=== PATIENT | female | born 1990 | race Caucasian/White ===

== ENCOUNTER 2019-01-08 09:54 | Emergency (ER) | payer BC ==
[2019-01-08 10:02] VITALS: TEMP 97.9
[2019-01-08] MEDS ORDERED: SODIUM CHLORIDE 0.9% 1,000 ML IV STA (10:38)
--- NOTE | 2019-01-08 10:53 | ED ---
Arrhythmia/Palpitations HPI - General Chief Complaint: Arrhythmia/Palpitations Stated Complaint: racing heart/near syncope Time Seen by Provider: 01/08/19 10:23 Source: patient, RN notes reviewed Mode of arrival: ambulatory Limitations: no limitations - History of Present Illness Initial Comments: 28-year-old female presents emergency Department chief complaint of palpitations, heart racing, near syncope. Patient states she did have syncopal episode on Sunday while she was camping. Patient reports that she felt very flushed feeling, diaphoretic, states that she started having some tunnel vision. Patient did have a complete loss conscious at this time. She states that she's been having symptoms last 5 weeks has been being seen by her primary care physician in which she's had no echocardiogram which is unremarkable, Holter monitor with no acute findings or no reports at this time. Patient states that she is 26 weeks A0 with no complications of her . Patient has no complaint of chest pain or shortness of breath. Denies any leg pain or leg swelling. Patient states she is asymptomatic at this time. She did have an event today when she was at the store she again felt flushed feeling, diaphoretic, dizzy and she had some heart racing. This didn't have resolved. - Related Data Home Medications Medication Instructions Recorded Confirmed Scn-Aidk-Rioak Acid 1 cap PO HS 01/08/19 01/08/19 [-U Capsule (formulary)] Allergies Allergy/AdvReac Type Severity Reaction Status Date / Time No Known Allergies Allergy Verified 01/08/19 09:58 Review of Systems ROS Statement: Those systems with pertinent positive or pertinent negative responses have been documented in the HPI. ROS Other: All systems not noted in ROS Statement are negative. Past Medical History Past Medical History: No Reported History History of Any Multi-Drug Resistant Organisms: None Reported Past Surgical History: Section, Tonsillectomy Past Psychological History: No Psychological Hx Reported Smoking Status: Never smoker Past Alcohol Use History: None Reported Past Drug Use History: None Reported General Exam Limitations: no limitations General appearance: alert, in no apparent distress Head exam: Present: atraumatic, normocephalic, normal inspection Eye exam: Present: normal appearance, PERRL, EOMI. Absent: scleral icterus, conjunctival injection, periorbital swelling ENT exam: Present: normal exam, normal oropharynx, mucous membranes moist Neck exam: Present: normal inspection, full ROM. Absent: tenderness, meningismus, lymphadenopathy Respiratory exam: Present: normal lung sounds bilaterally. Absent: respiratory distress, wheezes, rales, rhonchi, stridor Cardiovascular Exam: Present: regular rate, normal rhythm, normal heart sounds. Absent: systolic murmur, diastolic murmur, rubs, gallop, clicks GI/Abdominal exam: Present: soft, normal bowel sounds. Absent: distended, tenderness, guarding, rebound, rigid Back exam: Absent: CVA tenderness (R), CVA tenderness (L) Neurological exam: Present: alert, oriented X3, CN II-XII intact Skin exam: Present: warm, dry, intact, normal color. Absent: rash Course Vital Signs 01/08/19 01/08/19 01/08/19 09:58 11:04 11:29 Temperature 97.9 F Pulse Rate 100 84 86 Respiratory 18 16 18 Rate Blood Pressure 118/75 102/67 119/72 O2 Sat by Pulse 100 97 98 Oximetry Medical Decision Making - Medical Decision Making Patient workup including labs, EKG and urinalysis which reveals mild hypomagnesemia, hypokalemia. Patient had recent workup including Holter monitor and echocardiogram with no significant findings. Patient was a symptomatic in emergency department. Patient is stable for discharge. Patient is advised follow-up with cardiology she was offered placement of left-sided to the emergency department states that she has oral medications at home. - Lab Data Result diagrams: 01/08/19 10:52 01/08/19 10:52 Lab Results 01/08/19 01/08/19 01/08/19 Range/Units 10:52 10:52 11:35 WBC 7.3 (3.8-10.6) k/uL RBC 3.77 L (3.80-5.40) m/uL Hgb 10.7 L (11.4-16.0) gm/dL Hct 33.1 L (34.0-46.0) % MCV 87.8 (80.0-100.0) fL MCH 28.4 (25.0-35.0) pg MCHC 32.3 (31.0-37.0) g/dL RDW 13.3 (11.5-15.5) % Plt Count 223 (150-450) k/uL Neutrophils % 74 % Lymphocytes % 19 % Monocytes % 4 % Eosinophils % 1 % Basophils % 0 % Neutrophils # 5.4 (1.3-7.7) k/uL Lymphocytes # 1.4 (1.0-4.8) k/uL Monocytes # 0.3 (0-1.0) k/uL Eosinophils # 0.1 (0-0.7) k/uL Basophils # 0.0 (0-0.2) k/uL Sodium 135 L (137-145) mmol/L Potassium 3.8 (3.5-5.1) mmol/L Chloride 104 (98-107) mmol/L Carbon Dioxide 25 (22-30) mmol/L Anion Gap 6 mmol/L BUN 8 (7-17) mg/dL Creatinine 0.50 L (0.52-1.04) mg/dL Est GFR (CKD-EPI)AfAm >90 (>60 ml/min/1.73 sqM) Est GFR (CKD-EPI)NonAf >90 (>60 ml/min/1.73 sqM) Glucose 101 H (74-99) mg/dL Calcium 9.0 (8.4-10.2) mg/dL Magnesium 1.8 (1.6-2.3) mg/dL Total Bilirubin 0.3 (0.2-1.3) mg/dL AST 17 (14-36) U/L ALT 18 (9-52) U/L Alkaline Phosphatase 59 (38-126) U/L Total Protein 6.3 (6.3-8.2) g/dL Albumin 3.3 L (3.5-5.0) g/dL Urine Color Light Yellow Urine Appearance Clear (Clear) Urine pH 7.0 (5.0-8.0) Ur Specific Dwarf 1.006 (1.001-1.035) Urine Protein Negative (Negative) Urine Glucose (UA) Negative (Negative) Urine Ketones Negative (Negative) Urine Blood Negative (Negative) Urine Nitrite Negative (Negative) Urine Bilirubin Negative (Negative) Urine Urobilinogen <2.0 (<2.0) mg/dL Ur Leukocyte Esterase Negative (Negative) Disposition Clinical Impression: Tachycardia, Palpitation Disposition: HOME SELF-CARE Condition: Stable Instructions (If sedation given, give patient instructions): Heart Palpitations (ED) Additional Instructions: Please return to the Emergency Department if symptoms worsen or any other concerns. Is patient prescribed a controlled substance at d/c from ED?: No Referrals: Kimberly Wilson MD [Primary Care Provider] - 1-2 days Alexsander Sanabria MD [STAFF PHYSICIAN] - 1-2 days Time of Disposition: 12:10
[2019-01-08 11:17] LABS: Basophils % (A) 0 %; Eosinophils # (A) 0.1 k/uL (0-0.7); Eosinophils % (A) 1 %; HCT 33.1 % (34.0-46.0); HGB 10.7 gm/dL (11.4-16.0); Lymphocytes # (A) 1.4 k/uL (1.0-4.8); Lymphocytes % (A) 19 %; MCH 28.4 pg (25.0-35.0); MCHC 32.3 g/dL (31.0-37.0); MCV 87.8 fL (80.0-100.0); Mean Platelet Volume 7.7; Monocytes # (A) 0.3 k/uL (0-1.0); Monocytes % (A) 4 %; Neutrophils # (A) 5.4 k/uL (1.3-7.7); Neutrophils % (A) 74 %; Platelet Count 223 k/uL (150-450); RBC 3.77 m/uL (3.80-5.40); RDW 13.3 % (11.5-15.5); WBC 7.3 k/uL (3.8-10.6)
[2019-01-08 11:30] VITALS: BP 119/72; PULSE 86; RESP 18
[2019-01-08 11:40] LABS: ALT 18 U/L (9-52); AST 17 U/L (14-36); African American GFR (CKD) >90 (>60 ml/min/1.73 sqM); Albumin 3.3 g/dL (3.5-5.0); Alkaline Phosphatase 59 U/L (38-126); Anion Gap 6 mmol/L; Blood Urea Nitrogen 8 mg/dL (7-17); Carbon Dioxide 25 mmol/L (22-30); Chloride 104 mmol/L (98-107); Glucose 101 mg/dL (74-99); Magnesium 1.8 mg/dL (1.6-2.3); Potassium 3.8 mmol/L (3.5-5.1); Sodium 135 mmol/L (137-145); Total Bilirubin 0.3 mg/dL (0.2-1.3); Total Protein 6.3 g/dL (6.3-8.2)
[2019-01-08 11:48] LABS: Appearance,Urine Clear (Clear); Bilirubin,Urine Negative (Negative); Blood,Urine Negative (Negative); Color,Urine Light Yellow; Glucose,Urine (UA) Negative (Negative); Ketones,Urine Negative (Negative); Leukocyte Esterase,Urine Negative (Negative); Nitrite,Urine Negative (Negative); Protein,Urine Negative (Negative); Specific Gravity,Urine 1.006 (1.001-1.035); Urobilinogen,Urine <2.0 mg/dL (<2.0)
== END 2019-01-08 12:28 | disposition home or self-care (01) ==
LOC: EC 09:54
DX: O99.89 Other specified diseases and conditions complicating pregnancy, childbirth and the puerperium (principal); R00.0 Tachycardia, unspecified; R00.2 Palpitations; O99.282 Endocrine, nutritional and metabolic diseases complicating pregnancy, second trimester; E83.42 Hypomagnesemia; R55 Syncope and collapse; E87.6 Hypokalemia; Z98.890 Other specified postprocedural states; Z3A.26 26 weeks gestation of pregnancy
CPT/HCPCS: 36415; 80053; 81003; 83735; 85025; 93005; 96360; 99285

== ENCOUNTER → 2019-05-08 | Outpatient (CLI) | payer BC ==
--- NOTE | 2019-05-08 17:48 | US ---
EXAMINATION TYPE: US venous doppler duplex LE DATE OF EXAM: 05/08/2019 5:39 PM COMPARISON: NONE CLINICAL HISTORY: M79.661 PAIN RT LOWER LIMB,M79.662 PAIN LT LOWER LIMB. Pain bilateral lower extremi ties x 1 week. No hx of DVT. Patient does not take blood thinners. SIDE PERFORMED: Bilateral TECHNIQUE: The lower extremity deep venous system is examined utilizing real time linear array sonog inge with graded compression, doppler sonography and color-flow sonography. VESSELS IMAGED: External Iliac Vein (EIV) Common Femoral Vein Deep Femoral Vein Greater Saphenous Vein * Femoral Vein Popliteal Vein Small Saphenous Vein * Proximal Calf Veins (* superficial vessels) Right lower extremity findings: No evidence of DVT in veins imaged at this time from prox calf veins to EIV. Left lower extremity findings: No evidence of DVT in veins imaged at this time from prox calf veins to EIV. IMPRESSION: NEGATIVE FOR DVT, BILATERAL LOWER EXTREMITIES.
== END | disposition home or self-care (01) ==
LOC: RADUSWWP 16:59
PROVIDERS: ATTEND Family Medicine
DX: M79.662 Pain in left lower leg (principal); M79.661 Pain in right lower leg
CPT/HCPCS: 93970